=== PATIENT | female | born 1980 | race Caucasian/White ===

== ENCOUNTER 2018-12-30 09:56 | Day surgery (SDC) | payer OTHER ==
[2018-12-30] VITALS (12 sets, daily range): BP systolic 101–135; BP diastolic 47–71; PULSE 78–94; RESP 16–28; Ht 152.4 cm; Wt 67.8 kg
[~2018-12-30] VITALS: Ht 152.4 cm; Wt 67.8 kg
--- NOTE | 2018-12-30 11:15 | RADRPT ---
Vent Rate: 74 bpm RR Interval: 808 msec TX Interval: 171 msec QRS Duration: 108 msec QT Interval: 408 msec QTC Interval: 454 msec P-R-T Viola: 23 - 35 - 0 degrees Sinus rhythm...normal P axis, V-rate 50- 99 PVC Nonspecific IVCD Electronically Signed By: Rm Currie
[2018-12-30] MEDS ORDERED: SOD CHLORIDE 0.9% 1,000 ML IV SCH (11:30)
--- NOTE | 2018-12-30 12:54 | PREAC ---
Date/Time of Note Date/Time of Note DATE: 12/30/18 TIME: 12:49 Anesthesia Eval and Record Evaluation Time Pre-Procedure Interview DATE: 12/30/18 TIME: 12:49 Age 38 Sex female NPO: 8 hrs Preoperative diagnosis Pulmonary HTN and SLE Planned procedure HERRERA Past Medical History Past Medical History: Includes Cardio: Other (Pulm. HTN) Endo: Diabetes, Other (SLE) : : (4), Para: (3), Gestational age: Surgery & Anesthesia Issues No known issue Meds Anticoagulation: No Beta Neo within 24 hr: No Reason Beta Neo not given: Pt. not on B-Neo Reported Medications Multivitamins* (Theragran*) 1 Tab Tab, 1 TAB PO DAILY, TAB 12/30/18 Potassium Chloride* (K-Dur*) 20 Meq Tab.prt.sr, 1 TAB ORAL DAILY 12/30/18 Methotrexate* (Methotrexate*) 2.5 Mg Tab, 5 MG ORAL WEEKLY Fridays12/30/18 Epoprostenol Sodium (Arginine) (Veletri) 1.5 Mg Vial, 1.5 MG IV DAILY, VIAL 12/30/18 Calcium Carbonate/Vitamin D3 (OYSTER SHELL 500 MG + VIT D TB) 1 Each Tablet, 1 TAB ORAL BID 12/30/18 Macitentan (Opsumit) 10 Mg Tablet, 1 TAB ORAL DAILY 12/30/18 Mycophenolate Mofetil* (Mycophenolate Mofetil*) 500 Mg Tablet, 250 MG PO DAILY, TAB 12/30/18 Glimepiride* (Glimepiride*) 2 Mg Tablet, 1 TAB ORAL DAILY 12/30/18 Furosemide* (Furosemide*) 20 Mg Tablet, 1 TAB ORAL DAILY 12/30/18 Magnesium Oxide* (Mag-Oxide*) 400 Mg Tablet, 400 MG PO DAILY, TAB 12/30/18 Hydroxychloroquine Sulfate* (Hydroxychloroquine Sulfate*) 200 Mg Tablet, 1 TAB ORAL DAILY 12/30/18 Digoxin* (Digitek*) 125 Mcg Tablet, 1 TAB ORAL DAILY 12/30/18 Sildenafil Citrate* (Sildenafil Citrate*) 20 Mg Tablet, 1 TAB ORAL TID 12/30/18 Prednisone* (Prednisone*) 5 Mg Tab, 1 TAB ORAL DAILY 12/30/18 Folic Acid* (Folic Acid*) 1 Mg Tablet, 1 MG PO DAILY, TAB 12/30/18 Current Medications Sodium Chloride 1,000 ml @ 75 mls/hr [id number] IV Last administered on 12/30/18at 11:27; Admin Dose 75 MLS/HR; Start 12/30/18 at 11:30 Meds reviewed: Yes Allergies Coded Allergies: amoxicillin (Verified Allergy, Unknown, HIVES, 12/30/18) levofloxacin (Verified Allergy, Unknown, HIVES, 12/30/18) Allergies Reviewed: Yes Labs/Studies Labs Reviewed: Reviewed by anesthesiologist Result Diagram: 12/30/18 1045 12/30/18 1045 Laboratory Tests 12/30/18 10:45 test: Negative Studies: ECG (n/a), CXR (n/a) Pre-procedure Exam Last vitals Vital Signs Date Temp Pulse Resp B/P (MAP) Pulse Ox O2 O2 Flow FiO2 Time Delivery Rate 12/30/18 99.5 82 16 131/71 97 11:19 (91) Airway: Adequate mouth opening, Adequate thyromental dist Mallampati: Mallampati III Teeth: Normal Lung: Normal Heart: Normal ASA Physical Status ASA physical status: 3 Emergency: None Planned Anesthetic General/MAC: MAC Planned Pain Management Parenteral pain med Pre-operative Attestations Prior to commencing anesthesia and surgery, the patient was re-evaluated, there was verification of: *The patient's identity *The results of appropriate recent lab work and preoperative vital signs *The above evaluation not changing prior to induction *Anesthetic plan, risk benefits, alternative and complications discussed with patient/family; questions answered; patient/family understands, accepts and wishes to proceed. GORDON WELLS MD Dec 30, 2018 12:54
[2018-12-30] MEDS ORDERED: MIDAZOLAM 1 MG/ML 2 ML INJ ONE (12:59)
[2018-12-30] MEDS ORDERED: PROPOFOL 40 ML ONE (12:59)
[2018-12-30] MEDS ORDERED: PHENYLephrine (100 MCG/ML) 10ML SYG ONE (12:59)
[2018-12-30] MEDS ORDERED: EPHEDrine 25 MG/5 ML SYG ONE (12:59)
[2018-12-30] MEDS ORDERED: ONDANSETRON 4 MG INJ IV PRN (13:00)
[2018-12-30] MEDS ORDERED: LABETALOL HCL 20MG INJ IV PRN (13:00)
[2018-12-30] MEDS ORDERED: FENTAnyl 50 MCG/ML VIAL IV PRN (13:00)
[2018-12-30] MEDS ORDERED: METOCLOPRAMIDE 10 MG INJ IV PRN (13:00)
[2018-12-30] MEDS ORDERED: HYDROmorphONE 1 MG/5 ML IV SYRINGE IV PRN (13:00)
[2018-12-30] MEDS ORDERED: EPHEDrine 25 MG/5 ML SYG IV PRN (13:00)
[2018-12-30] MEDS ORDERED: HYDROCORTISONE 100 MG INJ ONE (13:04)
[2018-12-30] MEDS ORDERED: DEXTROSE 50% 50 ML SYRINGE ONE (13:09)
--- NOTE | 2018-12-30 14:43 | PAC ---
Date/Time of Note Date/Time of Note DATE: 12/30/18 TIME: 14:42 Post-Anesthesia Notes Post-Anesthesia Note Last documented vital signs Vital Signs Date Temp Pulse Resp B/P (MAP) Pulse Ox O2 O2 Flow FiO2 Time Delivery Rate 12/30/18 99.5 82 16 131/71 97 face mask 14:49 (91) Activity: WNL Respiratory function: WNL Cardiovascular function: WNL Mental status: Baseline Pain reasonably controlled: Yes Hydration appropriate: Yes Nausea/Vomiting absent: Yes GORDON WELLS MD Dec 30, 2018 14:43
--- NOTE | 2018-12-30 14:46 | PDOCDIS ---
Discharge Instructions CONDITION [id number] Patient Condition: [id number] Good HOME CARE INSTRUCTIONS: [id number] Diet Instructions: [id number] Reduced Sodium ACTIVITY: [id number] Activity Restrictions: [id number] Do not Drive (For 1 day) OTHER ORDERS: Other Orders: Follow-up with pulmonary hypertension specialist Mundo Ford DO Dec 30, 2018 14:46
--- NOTE | 2018-12-30 14:50 | OPR ---
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 Intubated with HERRERA probe. Images obtained. Agitated bubble study performed. Probe removed. No immediate complications Findings Normal left ventricular systolic function Right ventricle appears dilated Mitral valve grossly normal with trace regurgitation Tricuspid valve grossly normal with mild regurgitation Aortic valve grossly normal with no significant regurgitation Pulmonic valve poorly visualized with no significant regurgitation Intra-atrial septum with no color-flow seen with Doppler study. Agitated bubble study was performed, initially no bubbles was seen to cross, during the second injection, patient began coughing, and bubbles were seen in the left atrium. Most consistent with patent foramen ovale Right atrium grossly normal Left atrium grossly normal Recommendations Follow-up with pulmonary hypertension specialist Mundo Ford DO Dec 30, 2018 14:50
[2018-12-30] MEDS ORDERED: PROPOFOL 20 ML ONE (14:52)
== END 2018-12-30 17:00 | disposition home or self-care (01) ==
LOC: MERGE 09:56 → SDS 09:56
PROVIDERS: ATTEND Internal Medicine Cardiovascular Disease
DX: I27.20 Pulmonary hypertension, unspecified (principal); E11.9 Type 2 diabetes mellitus without complications
CPT/HCPCS: 80048; 82962; 84703; 85025; 85610; 85730; 93005; 93312; 93320; 93325; J1720; J2250; J2370; Z7610